=== PATIENT | male | born 1980 | race Caucasian/White ===

== ENCOUNTER 2022-05-14 12:13 | Outpatient (CLI) | payer OTHER | END 2022-05-14 12:14 | disposition home or self-care (01) | LOC: CSHRAD 12:13 | PROVIDERS: ATTEND Neurological Surgery | DX: M47.816 Spondylosis without myelopathy or radiculopathy, lumbar region (principal); M48.062 Spinal stenosis, lumbar region with neurogenic claudication; R93.7 Abnormal findings on diagnostic imaging of other parts of musculoskeletal system | CPT/HCPCS: 72100 ==

== ENCOUNTER 2022-06-09 09:08 | Day surgery (SDC) | payer OTHER ==
[~2022-06-09 09:08] MED LIST: Iopamidol-M 200 41% 20 ML VIAL ONE
[2022-06-09] MEDS ORDERED: Lidocaine 1% MPF 2 ML VIAL ONE (09:33)
[2022-06-09] MEDS ORDERED: Sodium Bicarbonate 2.5 MEQ/5 ML VIAL ONE (09:33)
== END 2022-06-09 11:45 | disposition home or self-care (01) ==
LOC: CSHRAD 09:08
PROVIDERS: ATTEND Neurological Surgery
PROC: B01BYZZ Fluoroscopy of Spinal Cord using Other Contrast (ICD-10-PCS; principal; 2022-06-09)
DX: M47.26 Other spondylosis with radiculopathy, lumbar region (principal); M43.16 Spondylolisthesis, lumbar region
CPT/HCPCS: 62304; 72132; Q9966

== ENCOUNTER 2023-02-18 10:57 | Outpatient (CLI) | payer OTHER | END 2023-02-18 10:58 | disposition home or self-care (01) | LOC: CSHRAD 10:57 | PROVIDERS: ATTEND Neurological Surgery | DX: M54.16 Radiculopathy, lumbar region (principal); Z98.890 Other specified postprocedural states | CPT/HCPCS: 72100 ==

== ENCOUNTER 2023-09-23 12:40 | Day surgery (SDC) | payer OTHER ==
[~2023-09-23 12:40] MED LIST changes: +Iopamidol-M 200 41% 10 ML VIAL FS ONE; -Iopamidol-M 200 41% 20 ML VIAL ONE
[2023-09-23] MEDS ORDERED: Lidocaine 1% PF 5 ML VIAL ONE (12:52)
[2023-09-23] MEDS ORDERED: Sodium Bicarbonate 2.5 MEQ/5 ML SDV ONE (12:52)
[2023-09-23 13:51] VITALS: BP 124/74; TEMP 98.4
[2023-09-23] MEDS ORDERED: FLU VACC QS2023-24(6MOS UP)/PF 60 MCG/0.5 ML SYRINGE IM ONE (14:00)
== END 2023-09-23 14:30 | disposition home or self-care (01) ==
LOC: CSHRAD 12:40
PROVIDERS: ATTEND Neurological Surgery
PROC: B01BYZZ Fluoroscopy of Spinal Cord using Other Contrast (ICD-10-PCS; principal; 2023-09-23)
DX: M51.36 Other intervertebral disc degeneration, lumbar region (principal); Z87.891 Personal history of nicotine dependence; Z79.899 Other long term (current) drug therapy
CPT/HCPCS: 62304; 72132; Q9966